=== PATIENT | male | born 1945 | race Caucasian/White ===

== ENCOUNTER 2016-07-16 12:27 | Inpatient (IN) | payer BC, MEDICARE ==
[~2016-07-16] VITALS: Ht 167.6 cm; Wt 104.0 kg
[2016-07-17 06:44] LABS: HEMATOCRIT 55.9 % (40-51); HEMOGLOBIN 18.3 g/dL (13.7-17.5); MEAN CORPUSCULAR HEMOGLOBIN 34.1 pg (27.0-33.0); MEAN CORPUSCULAR HGB CONC 32.7 g/dL (32.0-36.0); MEAN CORPUSCULAR VOLUME 104.1 fL (79-92); MEAN PLATELET VOLUME 11.5 fl (7.5-11.5); RED BLOOD COUNT 5.37 x10_6/uL (4.6-6.1); RED CELL DISTRIBUTION WIDTH 13.6 % (11.6-14.4); WHITE BLOOD COUNT 14.8 x10_3/uL (4.2-9.1)
[2016-07-17 06:56] LABS: BLOOD UREA NITROGEN 33 mg/dL (7-18); CALCIUM 9.7 mg/dL (8.7-10.7); CARBON DIOXIDE 30 mmol/L (21-32); GLUCOSE,RANDOM 138 mg/dL (70-99); POTASSIUM 4.5 mmol/L (3.5-5.1); SODIUM 140 mmol/L (136-145)
[2016-07-18 07:31] LABS: HEMATOCRIT 54.1 % (40-51); HEMOGLOBIN 17.6 g/dL (13.7-17.5); MEAN CORPUSCULAR HEMOGLOBIN 33.7 pg (27.0-33.0); MEAN CORPUSCULAR HGB CONC 32.5 g/dL (32.0-36.0); MEAN CORPUSCULAR VOLUME 103.4 fL (79-92); MEAN PLATELET VOLUME 11.9 fl (7.5-11.5); RED BLOOD COUNT 5.23 x10_6/uL (4.6-6.1); RED CELL DISTRIBUTION WIDTH 13.4 % (11.6-14.4); WHITE BLOOD COUNT 13.7 x10_3/uL (4.2-9.1)
[2016-07-18 07:46] LABS: BLOOD UREA NITROGEN 28 mg/dL (7-18); CALCIUM 9.1 mg/dL (8.7-10.7); CARBON DIOXIDE 27 mmol/L (21-32); CREATININE 0.9 mg/dL (0.6-1.3); GLUCOSE,RANDOM 123 mg/dL (70-99); POTASSIUM 4.1 mmol/L (3.5-5.1); SODIUM 137 mmol/L (136-145)
[2016-07-19 07:22] LABS: HEMATOCRIT 48.9 % (40-51); HEMOGLOBIN 16.1 g/dL (13.7-17.5); MEAN CORPUSCULAR HEMOGLOBIN 34.4 pg (27.0-33.0); MEAN CORPUSCULAR HGB CONC 32.9 g/dL (32.0-36.0); MEAN CORPUSCULAR VOLUME 104.5 fL (79-92); MEAN PLATELET VOLUME 12.2 fl (7.5-11.5); RED BLOOD COUNT 4.68 x10_6/uL (4.6-6.1); RED CELL DISTRIBUTION WIDTH 13.3 % (11.6-14.4); WHITE BLOOD COUNT 13.3 x10_3/uL (4.2-9.1)
[2016-07-19 07:46] LABS: ALBUMIN 3.5 gm/dL (3.4-5.0); ALKALINE PHOSPHATASE 59 U/L (50-136); ALT/SGPT 10 U/L (7.53-40.17); AST/SGOT 12 U/L (6.66-35.34); BILIRUBIN,TOTAL 1.33 mg/dL (0.0-1.0); BLOOD UREA NITROGEN 35 mg/dL (7-18); CALCIUM 8.3 mg/dL (8.7-10.7); CARBON DIOXIDE 26 mmol/L (21-32); GLUCOSE,RANDOM 137 mg/dL (70-99); POTASSIUM 4.3 mmol/L (3.5-5.1); SODIUM 133 mmol/L (136-145); TOTAL PROTEIN 6.6 gm/dL (6.4-8.2)
== END 2016-07-19 10:50 | disposition home or self-care (01) | DRG 354 ==
LOC: ER 12:27 → MS 16:10
PROVIDERS: Family Medicine; ADMIT Surgery
PROC: 0WUF0JZ Supplement Abdominal Wall with Synthetic Substitute, Open Approach (ICD-10-PCS; principal; 2016-07-18)
PROC: 0DBS0ZZ (ICD-10-PCS; 2016-07-18)
DX: K42.0 Umbilical hernia with obstruction, without gangrene (principal); K65.4 Sclerosing mesenteritis; I10 Essential (primary) hypertension; J44.9 Chronic obstructive pulmonary disease, unspecified; F17.210 Nicotine dependence, cigarettes, uncomplicated; N20.0 Calculus of kidney; R16.1 Splenomegaly, not elsewhere classified; I25.10 Atherosclerotic heart disease of native coronary artery without angina pectoris; Z88.5 Allergy status to narcotic agent; Z79.899 Other long term (current) drug therapy
CPT/HCPCS: 36415; 71020; 80048; 80053; 93005; 94640; 94664; 99070; 99284-25; J2704; J2930